=== PATIENT | male | born 1980 | race Caucasian/White ===

== ENCOUNTER 2024-12-04 23:50 | Observation (INO) | payer OTHER, SELFPAY ==
[2024-12-04] VITALS (8 sets, daily range): BP systolic 113–125; BP diastolic 65–84
[2024-12-04 13:02] LABS: % Basophils 0.7 % (0-2); % Eosinophils 1.6 % (0-6); % Immature Granulocytes 0.3 % (0-0.5); % Lymphocytes 17.6 % (20.5-51.1); % Monocytes 5.7 % (1.7-9.3); % Neutrophils 74.1 % (42.2-75.2); Absolute Basophils 0.1 10^3/uL (0-0.2); Absolute Eosinophils 0.2 10^3/uL (0-0.7); Absolute Lymphocytes 1.8 10^3/uL (1.2-3.4); Absolute Monocytes 0.6 10^3/uL (0.1-0.6); Absolute Neutrophils 7.5 10^3/uL (1.4-6.5); Hematocrit 48.9 % (39.0-52.0); Hemoglobin 16.6 g/dL (13.0-18.0); Mean Corp Hgb Conc. 33.9 g/dL (33.0-37.0); Mean Corpuscular Hgb 27.8 pg (27.0-31.0); Mean Corpuscular Volume 81.9 fL (80.0-94.0); Mean Platelet Volume 9.8 fL (7.4-10.4); Nucleated Red Blood Cells % 0 % (-); Platelet Count 332 10^3/uL (130-400); Red Blood Cell Count 5.97 10^6/uL (4.70-6.10); Red Cell Dist. Width 14.2 % (11.5-14.5); White Blood Cell Count 10.1 10^3/uL (4.8-10.8)
[2024-12-04 13:26] LABS: AST (SGOT) 25 U/L (17-59); Albumin 4.8 g/dl (3.5-5.0); Alkaline Phosphatase 112 U/L (38-126); Blood Urea Nitrogen 13 mg/dl (9-20); Calcium 9.8 mg/dl (8.4-10.2); Carbon Dioxide 19 mmol/L (22-30); Chloride 97 mmol/L (98-107); Glucose 152 mg/dl (70-99); Potassium 3.2 mmol/L (3.5-5.1); Sodium 136 mmol/L (135-145); Total Bilirubin 0.9 mg/dl (0.2-1.3); Total Protein 7.9 g/dl (6.3-8.2); eGFR > 60.00
[2024-12-04 15:22] LABS: ALT (SGPT) 18 U/L (0-50)
--- NOTE | 2024-12-04 17:25 | ED.GENMED ---
History of Present Illness
<Purnima Guevara PA-C - Last Filed: 12/05/24 01:28>
General
Chief Complaint: Fainting/Passed Out
Source: patient
Exam Limitations: none
Time Seen by Provider: 12/04/24 17:00
Nursing documentation reviewed up to this point in time: agreed with
History of Present Illness
History of Present Illness:
Patient is a 44-year-old male with history hypertension, kidney stones presenting to the emergency department after syncopal event at home. Patient states that he had been feeling generally unwell over the past few days. This morning�patient had
some vague abdominal discomfort and multiple episodes of dysuria. Patient then states that he was sitting on the couch when he had a witnessed syncopal event. He did have some nausea, following syncopal event. Patient denies any head strike or
loss of conscious. His son was present for the syncopal event and called 911. Patient denies any preceding chest pain, shortness of breath, lightheadedness.
On arrival to the emergency department�patient states he feels fatigue and has some lower abdominal discomfort. He was able to pee on arrival and states he is still having some dysuria and had a small amount of hematuria. Patient does have a
history of kidney stones although states feels different.
Past History
<JENNIFER Herndon Last Filed: 12/05/24 01:28>
Past History
ED Past Medical History: COPD, Seizures, Psychiatric and Other
ED Past Surgical History: Cholecystectomy, Urological (Kidney stones with stents, lithotripsy) and Other (right hand syrgery)
Social History
Tobacco: Former smoker (Vaps)
Alcohol: None
Drug: None
Personal:
Living: with family (juan and his three children)
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
Family History
Family History: Early CAD
Review of Systems
<Purnima Guevara PA-C - Last Filed: 12/05/24 01:28>
Review of Systems
Allergies reviewed?: Yes
All Other Systems: ROS reviewed and negative except as documented in HPI and ROS
Phy Exam
<Purnima Guevara PA-C - Last Filed: 12/05/24 01:28>
Physical Exam
Physical Exam:
Vitals: Patient's vital signs are stable. Afebrile
General: Patient is well appearing, no acute distress. Nontoxic.
Skin: Warm and dry, no rashes or lesions
Head: Normocephalic, atraumatic
Eyes: Sclera nonicteric. EOMs intact. No nystagmus.
Throat: Protecting airway
Neck: Normal ROM, no cervical spine tenderness, no meningismus
Cardiac: Regular rate and rhythm, no murmurs.
Pulm: Normal respiratory effort, no wheezes, rales, rhonchi heard on exam.
Abdomen: Abdomen soft. Mild lower abdominal tenderness without rebound tenderness or guarding. No CVA tenderness
Extremities: No evidence of cyanosis or edema. Palpable DP pulse
Neuro: AAOx3. Grossly intact.
Psychiatric: Normal affect.
Course
<Purnima Guevara PA-C - Last Filed: 12/05/24 01:28>
Orders/Labs/Results
Orders:
Orders
12/04/24 12:48
EKG [Electrocardiogram (*1)] Urgent
Reason for Study: Syncope
EKG- Treatment ONCE
12/04/24 12:55
Complete Blood Count/With Diff Urgent
Comprehensive Metabolic Panel Urgent
12/04/24 17:24
CT Head W/o Iv Contrast Urgent
Comment:
Reason For Exam: witnessed seizure
0.9% Sodium Chloride 1000 ml [Nss] 1,000 ml IV BOLUS
12/04/24 17:45
COVID-19 Antigen Urgent
Source: Nasal Swab
Influenza A+B Rapid Molecular Urgent
BRETT Source: Nasal Swab
Specimen Description:
12/04/24 17:49
Urinalysis Reflex To Culture Urgent
Date Specimen was Collected: 12/04/24
Time Specimen was Collected: 17:47
Urine Microscopic Reflex Cult Urgent
Urine Culture Urgent
BRETT Source: U
Specimen Description:
Date Specimen was Collected: 12/04/24
Time Specimen was Collected: 17:47
12/04/24 18:39
Abdomen/Pelvis wo Contrast CT [CT Abd/pelvis Wo Iv Cont] Urgent
Comment:
Reason For Exam: right flank pain, dysuria, hematuria
12/04/24 19:37
Troponin I Urgent
12/04/24 22:32
Iohexol [Omnipaque] See Protocol PO NOW STA
12/05/24 01:00
CT Abd/pel W Iv And Oral Contr Urgent
Comment: non con CT c/w appendicitis
Reason For Exam: Lower abd pain;
Abnormal Lab Results
12/04/24 12/04/24
12:55 17:49
Absolute Neuts (auto) 7.5 H 10^3/uL
(1.4-6.5)
Lymphocytes % 17.6 L %
(20.5-51.1)
Potassium 3.2 L mmol/L
(3.5-5.1)
Chloride 97 L mmol/L
(98-107)
Carbon Dioxide 19 L mmol/L
(22-30)
Glucose 152 H mg/dl
(70-99)
Ur Occult Blood Reflex 1+ A
(Negative)
Urine RBC 11-15 A /HPF
(0-2)
Urine Bacteria (Reflex) Moderate A
(Negative)
12/04/24 12:55
12/04/24 12:55
Vital Signs
Initial and Last Documented VS:
Initial Vital Signs
Temp Pulse Resp BP Pulse Ox
98.4 F 85 16 113/71 98
12/04/24 12:46 12/04/24 12:46 12/04/24 12:46 12/04/24 12:46 12/04/24 12:46
Last Documented Vital Signs
Temp Pulse Resp BP Pulse Ox
98.8 F 90 18 120/75 96
12/04/24 17:21 12/04/24 17:21 12/04/24 17:21 12/04/24 17:21 12/04/24 19:29
<Derrek Santana, DO - Last Filed: 12/04/24 21:13>
Orders/Labs/Results
Orders:
Orders
12/04/24 12:48
EKG [Electrocardiogram (*1)] Urgent
Reason for Study: Syncope
EKG- Treatment ONCE
12/04/24 12:55
Complete Blood Count/With Diff Urgent
Comprehensive Metabolic Panel Urgent
12/04/24 17:24
CT Head W/o Iv Contrast Urgent
Comment:
Reason For Exam: witnessed seizure
0.9% Sodium Chloride 1000 ml [Nss] 1,000 ml IV BOLUS
12/04/24 17:45
COVID-19 Antigen Urgent
Source: Nasal Swab
Influenza A+B Rapid Molecular Urgent
BRETT Source: Nasal Swab
Specimen Description:
12/04/24 17:49
Urinalysis Reflex To Culture Urgent
Date Specimen was Collected: 12/04/24
Time Specimen was Collected: 17:47
Urine Microscopic Reflex Cult Urgent
Urine Culture Urgent
BRETT Source: U
Specimen Description:
Date Specimen was Collected: 12/04/24
Time Specimen was Collected: 17:47
12/04/24 18:39
Abdomen/Pelvis wo Contrast CT [CT Abd/pelvis Wo Iv Cont] Urgent
Comment:
Reason For Exam: right flank pain, dysuria, hematuria
12/04/24 19:37
Troponin I Urgent
12/04/24 22:32
Iohexol [Omnipaque] See Protocol PO NOW STA
12/05/24 01:00
CT Abd/pel W Iv And Oral Contr Urgent
Comment: non con CT c/w appendicitis
Reason For Exam: Lower abd pain;
Abnormal Lab Results
12/04/24 12/04/24
12:55 17:49
Absolute Neuts (auto) 7.5 H 10^3/uL
(1.4-6.5)
Lymphocytes % 17.6 L %
(20.5-51.1)
Potassium 3.2 L mmol/L
(3.5-5.1)
Chloride 97 L mmol/L
(98-107)
Carbon Dioxide 19 L mmol/L
(22-30)
Glucose 152 H mg/dl
(70-99)
Ur Occult Blood Reflex 1+ A
(Negative)
Urine RBC 11-15 A /HPF
(0-2)
Urine Bacteria (Reflex) Moderate A
(Negative)
12/04/24 12:55
12/04/24 12:55
Vital Signs
Initial and Last Documented VS:
Initial Vital Signs
Temp Pulse Resp BP Pulse Ox
98.4 F 85 16 113/71 98
12/04/24 12:46 12/04/24 12:46 12/04/24 12:46 12/04/24 12:46 12/04/24 12:46
Last Documented Vital Signs
Temp Pulse Resp BP Pulse Ox
98.8 F 90 18 120/75 96
12/04/24 17:21 12/04/24 17:21 12/04/24 17:21 12/04/24 17:21 12/04/24 19:29
<Purnima Guevara PA-C - Last Filed: 12/05/24 01:28>
MDM/Problems Addressed
Differential Diagnosis Includes:
Not limited to: Cystitis, pyelonephritis, ureterolithiasis, viral illness, cardiac arrhythmia, electrolyte imbalance, acute coronary syndrome
MDM/Problems Addressed:
44-year-old male presenting following syncopal episode with dysuria and mild lower abdominal discomfort. Some associated nausea, no vomiting. No associated fevers. No preceding chest pain, shortness of breath. Patient has stable vital signs on
arrival. Physical exam as above. Syncopal event seems most consistent with likely vagal response. Low suspicion for central process vs cardiac cause. Will check labs and UA. Will check noncontrast CT abdomen to r/o kidney stone given dysuria and
associated lower abdominal pain + nausea. Will give fluids.
Update: Labs reviewed. Mild hypokalemia. Otherwise no clinically significant abnormalities. Urine somewhat equivocal for infection - RBCs and bacteria although no WBCs and nitrite negative. Head CT and CT abdomen without acute findings. Troponin
undetectable. EKG without acute ischemic changes.Low suspicion for acute cardiac process. Patient received a liter of IVF in ED. I do think it is possible that patient may have had a vagal response secondary to pain and may have passed kidney stone.
Given patients significant dysuria and bacturia will cover with abx pending culture. Otherwise - feel patient is stable for discharge with close return precautions.
Chronic conditions affecting care:
Hypertension, kidney stones, diabetes
Acute Exacerbation and/or Progression of Chronic Illness:
N/A
<Purnima Guevara PA-C - Last Filed: 12/05/24 01:28>
*Radiology
Radiology exam reviewed: radiology read reviewed
*Pulse Oximetry
Patient hypoxic: no
*EKG
Interpreted by ED Provider?: Yes
EKG Intrepretation Date: 12/04/24
Interpretation: normal
Comparison EKG: changes noted
Heart Rate: 73
Rate: normal
Rhythm: sinus arrhythmia
Booker: normal axis
Interval: normal interval
QRS Pattern: normal QRS
Ischemia: no ischemia
*Automotive Upholsterer Interpretation
Rate: normal
Interpretation: normal
Heart Rate: 88
Rhythm: sinus
*Critical Care Note
Total Time (30-74mins, 75-104mins- exclusive of procedures): Not Applicable
<Purnima Guevara PA-C - Last Filed: 12/05/24 01:28>
Patient Management
Discussion with other providers: Television Specialist (General surgery - Dr. Metzger)
Escalation/DeEscalation of care consider admission/obs:
Admit for observation overnight/ repeat CT scan - plan for OR in morning if repeat CT shows appendicitis
<Purnima Guevara PA-C - Last Filed: 12/05/24 01:28>
Update Note
Update Note:
Update 9:45PM: Pending discharge I was contacted by radiologist, Dr. Claudio who noted discrepancy of patients CT abdomen/ pelvis read by [facility]. Findings concerning for acute appendicitis. Patient did have some tenderness in RLQ on repeat abdominal
exam, although minimal. This was discussed with general surgery meals on wheels driver, Dr. Metzger. Somewhat atypical presentation for appendicitis. Plan to admit to surgery overnight for further observation. Will check repeat CT with IV/PO contrast for better eval
of appendix. OR in morning if findings consistent with appendicitis. Will hold abx for now. Patient comfortable with plan. Patient accepted to surgical service in stable condition.
ED Attending Note
<Purnima Guevara PA-C - Last Filed: 12/05/24 01:28>
-
Portions of this chart may have been created with voice recognition software.� Occasional wrong word or��sound alike� substitutions may have occurred due to the inherent limitations of voice recognition software.
<Derrek Santana DO - Last Filed: 12/04/24 21:13>
ED Attending Note
Patient seen and examined by attending physician: Yes
I performed the substantive portion of visit, reviewed & personally made and approve the management plan that is documented in note by myself or ARIEL.: Yes
ED Attending Note:
Seen with PA examined independently 44-year-old male history of stones and UTI, hematuria syncopal event, looks well here labs noted urine noted perhaps he passed a stone and vagal
Discharge Plan
Departure
Patient Disposition: Admit
Date of Disposition: 12/04/24
Time of Disposition: 22:33
Admit to doctor: Dr. Metzger
Presentation/result/management discussed w/ accepting MD/DO: Surgery
Discharge Problem:
Abdominal pain, Syncope
Interventions
Interventions:
*Risk Screen - Suicide Last Done: 12/04/24 12:46
*General Assessment Last Done: 12/04/24 12:46
*Neglect/Abuse Screening Last Done: 12/04/24 12:46
ED- Fall Risk Assessment Last Done: 12/04/24 19:29
*ED COVID-19 Vaccine History Last Done: 12/04/24 12:46
ED- Cardiac Assessment Last Done: 12/04/24 17:34
ED- Neurological Assessment Last Done: 12/04/24 19:29
[2024-12-04 17:55] LABS: Urine Albumin Negative (Neg - Trace); Urine Bilirubin Negative (Negative); Urine Character Clear (Clear); Urine Color Yellow; Urine Glucose Negative (Negative); Urine Ketone Negative (Negative); Urine Leukocyte Negative (Negative); Urine Nitrite Negative (Negative); Urine Occult Blood 1+ (Negative); Urine Specific Gravity 1.015 (<1.030); Urine Urobilinogen Negative (Neg - 1+)
[2024-12-04] MEDS: NSS 1000 IV (18:02)
[2024-12-04 18:03] LABS: Urine Mucus Moderate; Urine White Cell 0-2 /HPF (0-5)
[2024-12-04 18:04] LABS: Urine Bacteria Moderate (Negative)
[2024-12-04 18:08] LABS: COVID-19 Antigen Negative (Negative)
[2024-12-04 20:07] LABS: Troponin I < 0.012 ng/ml
[2024-12-04] MEDS: OMNIPAQUE 50 ML PO (23:02)
[2024-12-05] VITALS (15 sets, daily range): BP systolic 105–142; BP diastolic 60–84; BMI 30.7
--- NOTE | 2024-12-05 00:39 | HPS.HSE ---
Family Physician
<DARIEN Fu - Last Filed: 12/05/24 02:17>
-
Family Physician: Minh Vitale MD
Chief Complaint
<DARIEN Fu - Last Filed: 12/05/24 02:17>
-
'passed out at home' 'feels like i have a UTI'
History of Present Illness
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 Patient states that he had been feeling generally unwell, tired and weak over the
past few days. This morning�patient had some vague abdominal discomfort and multiple episodes of dysuria. He felt like he had a UTI. Describes urine being malodorous, feeling like 'i was peeing razor blades.' Patient then states that he was
sitting on the couch when he had a witnessed syncopal event. He has no recollection of this even, only that when he came to- EMS was there. He did have some nausea, following syncopal event. Patient denies any head strike or loss of conscious.
His son was present for the syncopal event and called 911. Patient denies any preceding chest pain, shortness of breath, lightheadedness.
Patient does have a history of kidney stones although states feels different.
Admit to feeling chills yesterday. BM normal. +anorexia.
Last dose of Eliquis pm 12/03/23
ED treatment:
CT abd no contrast: [facility]ology read initial Ct scan as normal appendix, but according to ED PA, she received phone call from in house radiology who expresses concern for appendicitis.
DR Metzger recommended CT with iv and oral contrast--pt drinking now
CT head: IMPRESSION:
No evidence of acute intracranial abnormality.
Paranasal sinus disease as described. Air-fluid levels within the sphenoid sinuses suggest the possibility of acute sinusitis, and please correlate clinically.
WBC normal
UA doesn't appear infected. Some mod bacteria, normal WBC and +1 blood
K+ low 3.2
Medical History
<DARIEN Fu - Last Filed: 12/05/24 02:17>
Past Medical History
Past Medical History: Reports COPD (mild), HTN, Hypercholesterolemia, NIDDM, Seizures (last seizure 2011. takes no meds), Psychiatric (anxiety) and Other (complex regional pain syndrome RLE after crush injury 2015)
Additional Past Medical History:
COPD-'mild'
Seizure disorder
DVT/PE on Eliquis
back pain
Complex regional pain syndrome
Lymphedema-resolved
Obesity
Depression
Anxiety
kidney stones
Crohn's disease-no meds
Gallstones-lap silvia 2015
History of ulcers
Former smoker
Fatty liver
Past Surgical History: Reports Cholecystectomy, Orthopedic (right hand) and Urological (lithotripsy. stent)
Social History
Tobacco: Former Smoker
Alcohol: None
Drug: None
Personal: Partner (fiance)
Living: With Family
Family History
Family History: Other (The patient's brother with a history of valvular heart issues. The patient's mother with a history of TIA x2 and hypertension. The patient's father with history of CAD and recent valvular heart repa)
Allergies / Home Medications
Allergies reflects when Allergies were last updated in [facility].
Home Medications with original date entered in [facility]
Allergy/Medication List:
Allergies
Allergy/AdvReac Type Severity Reaction Status Date / Time
No Known Allergies Allergy Verified 12/04/24 12:46
Home Medications
Buprenorphine Hcl/Naloxone Hcl [Buprenorphine-Nalox 8-2 Mg Tab] 1 tab sublingual BID Substance use disorder 03/20/21
albuterol sulfate 90 mcg/actuation aerosol inhaler 2 puff inhalation R [id number] PRN sob 03/20/21
alprazolam 1 mg tablet,extended release 24 hr 1 mg PO HS Mental Health/Anxiety 03/20/21
alprazolam 2 mg tablet,extended release 24 hr (Xanax XR) 2 mg PO DAILY Mental Health/Anxiety 03/20/21
apixaban 2.5 mg tablet (Eliquis) 2.5 mg PO BID Blood clot prevention/tx 03/20/21
atorvastatin 20 mg tablet 20 mg PO QPM High cholesterol 03/20/21
losartan 25 mg tablet 25 mg PO DAILY Blood pressure 03/20/21
metformin 500 mg tablet,extended release 24 hr 500 mg PO QPM Diabetes 03/20/21
hydrochlorothiazide 25 mg tablet 12.5 mg PO DAILY Blood pressure 04/03/21
semaglutide 1 mg/dose (2 mg/1.5 mL) subcutaneous pen injector 1 mg SC QWEEK 12/05/24
testosterone enanthate 50 mg/0.5 mL subcutaneous auto-injector (Xyosted) 50 mg SC QWEEK 12/05/24
Review of Systems
<DARIEN Fu - Last Filed: 12/05/24 02:17>
-
History Source: Patient
A 12 point ROS was completed and negative except as noted: Yes
Constitutional: Reports Fever (felt chills yesterday), Fatigue and Other (generalized unwell feeling last 2 days)
EENT: Reports Other (nasal congestion)
Respiratory: Reports No Symptoms
Cardiac: Reports Syncope (syncopal episode today)
Abdomen/GI: Reports See HPI, Abdominal Pain (lower diffuse abd discomfort) and Nausea (after syncope)
: Reports See HPI, Dysuria, Bleeding (noticed small amt blood) and Dark Urine
Musculoskeletal: Reports Muscle Pain (chronic pain RLE)
Skin: Reports No Symptoms
Neurological: Reports Weakness
Endocrine: Reports No Symptoms
Hematologic/Lymphatic: Reports No Symptoms
Psych: Reports No Symptoms
Physical Exam
<DARIEN Fu - Last Filed: 12/05/24 02:17>
Vital Signs
Vital Signs
Temp Pulse Resp BP Pulse Ox
98.8 F 90 18 120/75 96
12/04/24 17:21 12/04/24 17:21 12/04/24 17:21 12/04/24 17:21 12/04/24 19:29
Physical Exam
General: Well Developed, Well Nourished, No Apparent Distress, Comfortable and Obese
HEENT: NormoCephalic, Anicteric, Moist mucous membranes and Other (wears dentures, not in at the moment); No Good Dentition
Respiratory: Clear and Non Labored Respirations
Cardiac: S1/S2 and Regular Rhythm
Breast: Deferred by me
GI: Soft and Tender (suprapubic tenderness, + tender RLQ with mod-deep palpation)
Rectal: Deferred by Provider
Genito-urinary: Other (urine could not be visualized at this time)
Musculoskeletal: No Clubbing and No Cyanosis
Skin: Warm, Dry and Other (tattoos)
Neuro: Awake, Alert, Oriented, No Motor Deficits and Nonfocal/grossly intact
Hematologic/Lymphatic: No Lymphadenopathy
Psych: Calm
Laboratory Results
<DARIEN Fu - Last Filed: 12/05/24 02:17>
-
12/04/24 12:55
12/04/24 12:55
Laboratory Results
Total Bilirubin 0.9 mg/dl (0.2-1.3) 12/04/24 12:55
AST 25 U/L (17-59) 12/04/24 12:55
ALT 18 U/L (0-50) 12/04/24 12:55
Alkaline Phosphatase 112 U/L (38-126) 12/04/24 12:55
Troponin I < 0.012 ng/ml 12/04/24 19:37
Data Reviewed
<DARIEN Fu - Last Filed: 12/05/24 02:17>
-
CT Scan: Discussed with Physician
Medical Tests (Nuc Med, Echo, EKG etc): Report Reviewed by me
Lab Data: Labs Reviewed by me
<Soy Metzger MD - Last Filed: 12/05/24 09:50>
-
CT Scan: Image Personally Visualized and interpreted, Report Reviewed by me and Discussed with Patient
Lab Data: Discussed with Patient
Impression/Plan
<DARIEN Fu - Last Filed: 12/05/24 02:17>
-
IMPRESSION:
acute appendicitis
PLAN:
Admit to service of Dr Metzger
Tele obs (due to syncope today)
#acute appendicitis
-First CT abd w/o contrast: The appendix is visualized off the superior medial aspect of the cecum. The appendix is enlarged, measuring up to 11 mm in diameter. There is mild stranding of the fat adjacent to the appendix, probably best seen on
coronal images 38 and 39 of series 202. These findings are suggestive of appendicitis and please correlate clinically. Of note, the appendix appears normal on previous examination. Of note, this finding is a discrepancy with the preliminary report
from [facility]. This finding was discussed with Purnima Guevara in the emergency department on December 04, 2014 at 2145 hours.
-Dr Metzger recommended CT abd with oral and IV contrast- pending
-NPO x meds for possible OR in am
-start zosyn q6h (will also cover poss UTI, and acute sinusitis seen on CT head today)
-CBC BMP in am
-IVF NSS
-at this time does not wish narcotics for pain. will stick with his buprenorphine
#DVT/PE on Eliquis
-last dose 12/03/24 pm
-Hold doses tonight
#Complex regional pain syndrome
-cont buprenorphine ( he takes 2mg in am and usually only 1/2 tab in pm)
-Advised to have family bring in own buprenorphine/naloxone if staying longer that 1 day as it is non formulary here.
#anxiety
-cont xanax
#HTN
-hold HCTZ
-cont losartan (bp currently controlled in 120's)
#NIDDM
-hold metformin tomorrow
-low SS and accuchecks
-check Ha1c
-Hold ozempic
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
Seizure disorder- last one 2011. No meds
COPD mild- albuterol PRN at home . takes rarely
Full code
DVT proph: SCDs while eliquis on hold
[2024-12-05] MEDS: SUBUTEX 1 MG SL ×2 (01:40→21:57)
[2024-12-05] MEDS: XANAX 1 MG PO ×2 (01:40→21:57)
[2024-12-05] MEDS: KCL 40 MEQ PO (03:02)
[2024-12-05] MEDS: ZOSYN 50 IV ×4 (03:02→20:24)
[2024-12-05] MEDS: NSS 1000 IV ×3 (04:24→23:40)
[2024-12-05 05:56] LABS: % Basophils 0.4 % (0-2); % Eosinophils 0.6 % (0-6); % Immature Granulocytes 0.4 % (0-0.5); % Monocytes 8.4 % (1.7-9.3); % Neutrophils 77.2 % (42.2-75.2); Absolute Basophils 0.1 10^3/uL (0-0.2); Absolute Eosinophils 0.1 10^3/uL (0-0.7); Absolute Immature Granulocytes 0.1 10^3/uL (0-0.05); Absolute Monocytes 1.3 10^3/uL (0.1-0.6); Hematocrit 45.7 % (39.0-52.0); Hemoglobin 15.2 g/dL (13.0-18.0); Mean Corp Hgb Conc. 33.3 g/dL (33.0-37.0); Mean Corpuscular Hgb 27.4 pg (27.0-31.0); Mean Corpuscular Volume 82.5 fL (80.0-94.0); Mean Platelet Volume 9.8 fL (7.4-10.4); Nucleated Red Blood Cells % 0 % (-); Platelet Count 322 10^3/uL (130-400); Red Blood Cell Count 5.54 10^6/uL (4.70-6.10); Red Cell Dist. Width 14.4 % (11.5-14.5); White Blood Cell Count 15.6 10^3/uL (4.8-10.8)
[2024-12-05 06:07] LABS: INR 1.16; PT 15.1 Sec (11.4-14.6)
[2024-12-05 06:23] LABS: ALT (SGPT) 14 U/L (0-50); AST (SGOT) 27 U/L (17-59); Albumin 4.3 g/dl (3.5-5.0); Alkaline Phosphatase 97 U/L (38-126); Blood Urea Nitrogen 12 mg/dl (9-20); Calcium 8.7 mg/dl (8.4-10.2); Carbon Dioxide 31 mmol/L (22-30); Chloride 93 mmol/L (98-107); Estimated Creatinine Clearance 94 ml/min; Glucose 90 mg/dl (70-99); Potassium 3.1 mmol/L (3.5-5.1); Sodium 136 mmol/L (135-145); Total Bilirubin 1.5 mg/dl (0.2-1.3); eGFR > 60.00
[2024-12-05] MEDS: COZAAR 25 MG PO (07:56)
[2024-12-05] MEDS: SUBUTEX 2 MG SL (07:57)
[2024-12-05 07:59] LABS: Glucose - Point of Care 82 mg/dl (70-99)
[2024-12-05] MEDS: NOVOLOG FLEXPEN-LOW RESISTANCE SC ×2 (08:00→12:28)
[2024-12-05] MEDS: KCL 270 MEQ IV (08:39)
[2024-12-05] MEDS: KCENTRA 180 UNIT IV (09:56)
--- NOTE | 2024-12-05 10:06 | CON.HOSP ---
Consultation
-
Date/Time Consultation Requested: 12/05/2024 07:39 AM
Date/Time Consultation Performed: 12/05/2024 10:06 AM
Requesting Provider: Dr. Paul Metzger
Performing Provider: Dr. Erma Moreland
Reason for Consultation: medical management
Family Physician
-
Family Physician: Minh Vitale MD
Chief Complaint
-
lower abdominal pain
History of Present Illness
Patient is a 44-year-old male with a past medical history significant for seizure disorder, chronic back pain, essential hypertension, chronic lymphedema, history of deep venous thrombosis with pulmonary embolism who started feeling unwell Friday
morning prior to admission. He stated that he was feeling tired and when he urinated it felt like 'razor blades'. He stated it was dark and smelled and he thought he had a urinary tract infection. He states that he was having chills and overall
not feeling well. He was nauseous but did not have any vomiting, constipation, or diarrhea. He stated he was sitting on the couch with his son watching TV and eating Spaghetti-Os when he does not remember what happened. Apparently, family called
911 and he was brought to the emergency room. Workup here finds him to have acute appendicitis and the patient is going to the operating room at 11 AM today.
We are asked to see the patient for medical management of his chronic medical issues.
Medical History
Past Medical History
Past Medical History: Reports Other
Additional Past Medical History:
Seizure disorder-last seizure over 12 years ago
Type 2 diabetes mellitus versus prediabetes as patient indicates
Chronic lymphedema
Essential hypertension
Deep venous thrombosis with pulmonary embolism in past
Chronic low back pain
History of renal stones
Past Surgical History: Reports Other
Additional Past Surgical History:
Cholecystectomy
Spinal stimulator implant and explantation (explantation approximately 1 year ago)
History of renal stones with stents and lithotripsy
Social History
Tobacco: Non-smoker
Alcohol: None
Drug: None
Living: With Family
Family History
Family History: Other (Younger brother had congenital heart issues and had valve replacement, father also had valve replacement)
Allergies / Home Medications
Allergies reflects when Allergies were last updated in [facility]
Home Medications with original date entered in [facility]
Allergy/Medication List:
Allergies
Allergy/AdvReac Type Severity Reaction Status Date / Time
No Known Allergies Allergy Verified 12/04/24 12:46
Home Medications
Buprenorphine Hcl/Naloxone Hcl [Buprenorphine-Nalox 8-2 Mg Tab] 1 tab sublingual BID Substance use disorder 03/20/21
albuterol sulfate 90 mcg/actuation aerosol inhaler 2 puff inhalation R [id number] PRN sob 03/20/21
alprazolam 1 mg tablet,extended release 24 hr 1 mg PO HS Mental Health/Anxiety 03/20/21
alprazolam 2 mg tablet,extended release 24 hr (Xanax XR) 2 mg PO DAILY Mental Health/Anxiety 03/20/21
apixaban 2.5 mg tablet (Eliquis) 2.5 mg PO BID Blood clot prevention/tx 03/20/21
atorvastatin 20 mg tablet 20 mg PO QPM High cholesterol 03/20/21
losartan 25 mg tablet 25 mg PO DAILY Blood pressure 03/20/21
metformin 500 mg tablet,extended release 24 hr 500 mg PO QPM Diabetes 03/20/21
hydrochlorothiazide 25 mg tablet 12.5 mg PO DAILY Blood pressure 04/03/21
semaglutide 1 mg/dose (2 mg/1.5 mL) subcutaneous pen injector 1 mg SC QWEEK 12/05/24
testosterone enanthate 50 mg/0.5 mL subcutaneous auto-injector (Xyosted) 50 mg SC QWEEK 12/05/24
Review of Systems
-
History Source: Patient
Constitutional: Reports Chills; Denies Fever
EENT: Reports No Symptoms
Respiratory: Reports No Symptoms
Cardiac: Reports No Symptoms
Abdomen/GI: Reports Abdominal Pain and Nausea; Denies Vomiting or Diarrhea
: Reports Dysuria
Musculoskeletal: Reports No Symptoms
Skin: Reports No Symptoms
Neurological: Reports No Symptoms
Endocrine: Reports No Symptoms
Hematologic/Lymphatic: Reports No Symptoms
Psych: Reports No Symptoms
Physical Exam
Vital Signs
Vital Signs
Temp Pulse Resp BP Pulse Ox
98.0 F 82 18 110/68 98
12/05/24 07:50 12/05/24 07:56 12/05/24 07:50 12/05/24 07:56 12/05/24 07:50
Physical Exam
General: Well Developed, Well Nourished and No Apparent Distress
HEENT: Normocephalic and Atraumatic
Respiratory: Clear; Negative Wheezes, Rales or Rhonchi
Cardiac: S1/S2 and Regular Rhythm; Negative Murmur
GI: Soft, Non Distended, Normal Bowel Sounds and Tender (Right lower quadrant)
Musculoskeletal: No Clubbing, No Cyanosis and No Edema
Skin: Warm
Neuro: Awake and Alert
Psych: Calm
Laboratory Results
-
Laboratory Results
12/05/24 04:41
12/05/24 04:41
PT 15.1 Sec (11.4-14.6) H 12/05/24 04:41
INR 1.16 12/05/24 04:41
Total Bilirubin 1.5 mg/dl (0.2-1.3) H 12/05/24 04:41
AST 27 U/L (17-59) 12/05/24 04:41
ALT 14 U/L (0-50) 12/05/24 04:41
Alkaline Phosphatase 97 U/L (38-126) 12/05/24 04:41
Troponin I < 0.012 ng/ml 12/04/24 19:37
Impression / Plan
-
Patient is a 44-year-old male
Acute appendicitis--no objections to the operating room as scheduled later today--rest of care in this regard per primary team
Seizure disorder--no seizures for the last 12 years at least--not on any antiseizure medications at this time
History of deep venous thrombosis/pulmonary embolism--does take Eliquis--last dose was morning of 12/04/24--continue to hold in anticipation for surgery today--can restart when okay with surgery
Type 2 diabetes mellitus versus prediabetes (as patient seems to think)--hold Ozempic--hold metformin--placed on sliding scale insulin with coverage, will check hemoglobin O8g--AZ scan done with IV contrast, therefore need to hold metformin for 48
hours prior to restarting
Chronic pain--patient no longer has spinal stimulator--takes buprenorphine (Subutex)--can restart later tonight when anesthesia wears off
Chronic lymphedema--none appreciated currently--will hold hydrochlorothiazide in the perioperative setting--can start on discharge
Essential hypertension--can continue losartan with holding parameters
Anxiety/depression--will hold Xanax for now as patient going to the operating room
Hyperlipidemia--continue atorvastatin once able to take p.o.'s
DVT prophylaxis--sequential teds compression for now
CODE STATUS--full code
Thank you for allowing us to consult on your patient. Will follow with you.
--- NOTE | 2024-12-05 10:42 | PTCARENOTE ---
Patient sent to PACU for OR @10:42; 2nd set of CHG wipes completed; Spoke with GAS CUTTING MACHINE OPERATOR Mariah at 10:20 to let know patient had [employer] infusing until 10:30 and also ABO2 being drawn by phlebotomy before sending to PACU for OR; ABO2 drawn and patient
then brought to PACU for OR in bed @10:42 with Krider & IVF infusing (okayed by Dr. Metzger to sent to OR with such infusing).
[2024-12-05 10:43] LABS: Glycohemoglobin (HgbA1c) 5.7 % (4.0-5.6)
--- NOTE | 2024-12-05 12:59 | W.IMMPOSTOP ---
Surgical Immed Post Op Note
-
Primary Surgeon: Paul Metzger MD
Signals Intelligence Analyst: STEPHANIE Yu
Pre-op Diagnosis: Acute appendicitis
Post-op Diagnosis: Same
Procedure Performed: Laparoscopic appendectomy
Anesthesia Type: GET
Specimen / Cultures: Appendix
Estimated Blood Loss: 7cc
Complications: None
Operative Findings: Acutely inflamed, nonperforated appendix
[2024-12-05] MEDS: DILAUDID 0.5 MG IV (13:03)
[2024-12-05] MEDS: TORADOL 15 MG IV (13:11)
[2024-12-05 13:12] LABS: Glucose - Point of Care 117 mg/dl (70-99)
--- NOTE | 2024-12-05 13:40 | PTCARENOTE ---
Patient arrived from PACU @13:40 on telemetry and with IVF infusing, 3 lap/port sites with surgical glue C/D/I; VSS.
--- NOTE | 2024-12-05 15:20 | CM ---
CM reviewed chart. Pt from home now s/p Laparoscopic appendectomy on 12/05.
Pt not available to speak with at this time. Pt is noted to have no skilled needs noted.
Anticipate dc to home- pt responsible for arranging transport at dc.
CM/SW will continue to follow to ensure a safe and timely discharge.
Consult CM/SW should dc needs change from the above.
[2024-12-05 16:36] LABS: Glucose - Point of Care 157 mg/dl (70-99)
[2024-12-05] MEDS: NOVOLOG FLEXPEN-LOW RESISTANCE 1 UNITS SC (17:11)
[2024-12-05] MEDS: LIPITOR 20 MG PO (17:12)
[2024-12-05 21:04] LABS: Glucose - Point of Care 145 mg/dl (70-99)
[2024-12-06] MEDS: ZOSYN 50 IV ×3 (02:28→14:31)
[2024-12-06 02:50] VITALS: BP 105/52
[2024-12-06 06:28] LABS: Hematocrit 38.6 % (39.0-52.0); Mean Corp Hgb Conc. 33.7 g/dL (33.0-37.0); Mean Corpuscular Hgb 28.3 pg (27.0-31.0); Mean Corpuscular Volume 83.9 fL (80.0-94.0); Mean Platelet Volume 9.7 fL (7.4-10.4); Platelet Count 273 10^3/uL (130-400); Red Cell Dist. Width 14.7 % (11.5-14.5); White Blood Cell Count 14.6 10^3/uL (4.8-10.8)
[2024-12-06 06:47] LABS: Blood Urea Nitrogen 10 mg/dl (9-20); Carbon Dioxide 27 mmol/L (22-30); Chloride 99 mmol/L (98-107); Estimated Creatinine Clearance 112 ml/min; Glucose 116 mg/dl (70-99); Magnesium 2.2 mg/dl (1.6-2.3); Potassium 3.7 mmol/L (3.5-5.1); Sodium 137 mmol/L (135-145); eGFR > 60.00
[2024-12-06 07:21] VITALS: BP 103/57
[2024-12-06] MEDS: SUBUTEX 2 MG SL (07:43)
[2024-12-06] MEDS: NSS 1000 IV (07:56)
[2024-12-06 08:33] LABS: Glucose - Point of Care 150 mg/dl (70-99)
[2024-12-06] MEDS: NOVOLOG FLEXPEN-LOW RESISTANCE 1 UNITS SC (08:59)
--- NOTE | 2024-12-06 10:18 | W.PN.CRS1 ---
Today's Communication / Plan
-
likely d/c later today
start eliquis tonight
regular diet
Assessment/Plan
-
POD#1 Laparoscopic appendectomy
-Vitals normal. WBC 14.6 as expected post op.
-Advance diet to regular.
-D/C IVFs.
-OOB as tolerated.
-Voiding post lantigua removal.
-OR pathology pending.
-Okay to restart Eliquis tonight.
-Still complaining of urinary burning - await urine culture
-Appreciate hopsitalist
-Likely discharge later today
-Do not need IV abx from a surgical perspective, but will keep on for now given urinary symptoms and await hospitalist's opinion.
Subjective Data
Subjective Data
Date of Service: December 06, 2024
Patient states he feels well. He doesn't have much of an appetite. He has gas pain but no bowel movements yet. His pain is 'okay'.
Objective Data
-
Vital Signs
Temp Pulse Resp BP Pulse Ox
98.9 F 71 20 103/57 96
12/06/24 07:21 12/06/24 07:21 12/06/24 07:21 12/06/24 07:21 12/06/24 07:21
Intake & Output
12/05/24 12/06/24 12/07/24
06:59 06:59 06:59
Intake Total 425 / 425 4455 / 4455 50 / 50
Output Total 920 / 920 450 / 450
Balance 425 / 425 3535 / 3535 -400 / -400
Intake:
Oral fluids 1380 / 1380
IV fluids (Total) 375 / 375 2425 / 2425
nss 75 / 75
IV piggybacks 50 / 50 650 / 650 50 / 50
Output:
Urine, Voided 920 / 920 450 / 450
Other:
Number of approximated MODERATE 1 1
amounts of urine
Number of approximated LARGE 1
amounts of urine
Lab Results
12/06/24 05:11
12/06/24 05:11
Physical Exam
-
General: No Acute Distress and AOx3
Abdomen: Soft, Non Distended and Non Tender
Skin: Warm and Dry
Incision: Clear, Dry, Intact
[2024-12-06 11:00] VITALS: BP 110/61
[2024-12-06 12:26] LABS: Glucose - Point of Care 113 mg/dl (70-99)
[2024-12-06] MEDS: NOVOLOG FLEXPEN-LOW RESISTANCE SC ×2 (13:08→17:10)
--- NOTE | 2024-12-06 14:51 | W.PN.HOSP.TC ---
Addendum entered and electronically signed by Erma Moreland MD 12/06/24 17:51:
I saw and evaluated the patient independently. I reviewed the resident�s note and agree with findings and plan as documented by Dr. Correa.
GENERAL: well developed, well nourished, male in no apparent distress
HEENT: NC/AT
HEART: regular rate and rhythm, +S1, +S2--bradycardic on tele (HR 30s-60s)
LUNGS : clear to auscultation bilaterally
ABDOM: soft, nontender, nondistended, + bowel sounds
EXT: no cyanosis, clubbing, or edema
NEUROLOGIC: grossly intact
Acute appendicitis--POD 1--cleared for d/c by primary team
Seizure disorder--no seizures for the last 12 years at least--not on any antiseizure medications at this time
History of deep venous thrombosis/pulmonary embolism--does take Eliquis--last dose was morning of 12/04/24--continue to hold in anticipation for surgery today--can restart
Type 2 diabetes mellitus versus prediabetes (as patient seems to think)--restart Ozempic-- hemoglobin A1c 5.7--CT scan done with IV contrast, therefore need to hold metformin for 48 hours prior to restarting
Chronic pain--patient no longer has spinal stimulator--takes buprenorphine (Subutex)--can restart later tonight when anesthesia wears off
Chronic lymphedema--none appreciated currently--will hold hydrochlorothiazide in the perioperative setting--can restart on discharge
Essential hypertension--can continue losartan with holding parameters
bradycardia--sinus but unclear if symptomatic as pt has had syncope at home at times--f/u with cards as outpt--may need holter monitor
Anxiety/depression--will hold Xanax for now as patient going to the operating room
Hyperlipidemia--continue atorvastatin once able to take p.o.'s
DVT prophylaxis--sequential teds compression for now
CODE STATUS--full code
Original Note:
Today's Communication/Plan
-
Discharge today as per primary team
Assessment / Plan
Assessment / Plan
44-year-old male admitted for appendicitis, s/p laparoscopic appendectomy on 12/05/2024.
Impression
Acute appendicitis
Hematuria/bacteriuria
Seizure disorder
Bradycardia
History of DVT/PE
Type II DM
Chronic pain
Chronic lymphedema
Essential hypertension
Anxiety/depression
Hyperlipidemia
Plan
Acute appendicitis
POD #1
Patient did not have a bowel movement yet, but he is passing flatus
Advance diet as tolerated
IV fluids discontinued
Discontinue Zosyn
Resume Eliquis today
Hematuria/bacteriuria
Patient has some urinary symptoms
Urine culture�no growth
Pyridium as outpatient at discharge
Seizure disorder
Not on any seizure meds since 12 years
Bradycardia
Heart rate�30-50
Patient is asymptomatic
Follow-up with cardiology as outpatient
History of DVT/PE
Resume Eliquis today
Type II DM
Can resume Ozempic
Can restart metformin on 12/07/2024
HbA1c�5.7
Continue SSI
Chronic pain
Continue Subutex
Essential hypertension
Losartan 25 mg
Can resume hydrochlorothiazide
Anxiety/depression
Resume Xanax
Hyperlipidemia
Continue atorvastatin 20 mg
DVT prophylaxis
SCDs
Anticipated Discharge: Today
Subjective/Interval History
-
Date of Service: December 06, 2024
Patient feeling better. Patient has tolerated clear liquids yesterday.
Objective Data
-
Labs:
Laboratory Results
12/06/24
05:11
WBC 14.6 H
Hgb 13.0
Hct 38.6 L
Plt Count 273
Sodium 137
Potassium 3.7
Chloride 99
Carbon Dioxide 27
BUN 10
Creatinine 1.0
Glucose 116 H
Calcium 8.0 L
Vital Signs:
Vital Signs
Temp Pulse Resp BP Pulse Ox
97.9 F 77 16 110/61 95
12/06/24 11:00 12/06/24 11:00 12/06/24 11:00 12/06/24 11:00 12/06/24 11:00
I&O
12/05/24 12/06/24 12/07/24
06:59 06:59 06:59
Intake Total 425 / 425 4455 / 4455 100 / 100
Output Total 920 / 920 650 / 650
Balance 425 / 425 3535 / 3535 -550 / -550
Review of Systems
-
All other systems: Reviewed and negative (As per history)
Physical Exam
-
General: Well Developed, Well Nourished and No Apparent Distress
HEENT: Normocephalic and Atraumatic
Respiratory: Clear to Auscultation
Cardiac: Regular Rhythm and S1/S2
GI: Soft, Nondistended and Other (Laparoscopic port sites intact, no drainage)
Musculoskeletal: No Clubbing, No Cyanosis and No Edema
Skin: Warm and Dry
Neuro: Awake, Alert, Oriented and AO x 3
Psych: Calm
--- NOTE | 2024-12-06 15:26 | CM ---
Addendum entered by Alyse Early 12/06/24 15:29:
Patient was obs and physician changed to [facility] [place] today.
Original Note:
Patient seen at bedside with physicians. Patient states that he has transportation home with his father and that he lives alone in a 2 story home. Patient with no needs at this time. CM will continue to follow for discharge planning needs.
Plan; home with no needs.
[2024-12-06 16:14] VITALS: BP 112/75
[2024-12-06] MEDS: LIPITOR 20 MG PO (17:11)
== END 2024-12-06 18:40 | disposition home or self-care (01) ==
LOC: 2 SOUTH 23:50
PROVIDERS: Emergency Medicine; Nurse Practitioner Family; Physician Assistant; Registered Nurse; Student in an Organized Health Care Education/Training Program; ADMITTING PHYSICIAN Surgery; CONSULT PHYSICIAN Internal Medicine; EMERGENCY PHYSICIAN Emergency Medicine; FAMILY PHYSICIAN Internal Medicine
PROC: 30283B1 Transfusion of Nonautologous 4-Factor Prothrombin Complex Concentrate into Vein, Percutaneous Approach (ICD-10-PCS; 2024-12-05)
PROC: 0DTJ4ZZ Resection of Appendix, Percutaneous Endoscopic Approach (ICD-10-PCS; 2024-12-05)
DX: K35.80 Unspecified acute appendicitis (principal); Z79.01 Long term (current) use of anticoagulants; I10 Essential (primary) hypertension; Z87.442 Personal history of urinary calculi; J44.9 Chronic obstructive pulmonary disease, unspecified; G40.909 Epilepsy, unspecified, not intractable, without status epilepticus; E87.6 Hypokalemia; Z86.718 Personal history of other venous thrombosis and embolism; Z86.711 Personal history of pulmonary embolism; N20.0 Calculus of kidney; E78.00 Pure hypercholesterolemia, unspecified; E11.9 Type 2 diabetes mellitus without complications; Z79.84 Long term (current) use of oral hypoglycemic drugs; F41.9 Anxiety disorder, unspecified; F32.A Depression, unspecified; E66.9 Obesity, unspecified; Z87.891 Personal history of nicotine dependence; K76.0 Fatty (change of) liver, not elsewhere classified; G90.521 Complex regional pain syndrome I of right lower limb; I89.0 Lymphedema, not elsewhere classified; R00.1 Bradycardia, unspecified; R82.71 Bacteriuria; R31.9 Hematuria, unspecified; Z11.52 Encounter for screening for COVID-19; K38.2 Diverticulum of appendix
CPT/HCPCS: 44970; 88304; 70450; 74176; 74177; 80048; 80053; 81003; 81015; 82962; 83036; 83735; 84484; 85025; 85027; 85610; 86850; 86900; 86901; 87086; 87502; 87811; 93005; 96360; 96361; 99285; C1776; G0378; J7168; Q9967

== ENCOUNTER → 2025-01-14 10:57 | Outpatient (REF) | payer OTHER, SELFPAY | LOC: HWRCS 10:57 | PROVIDERS: ATTENDING PHYSICIAN Internal Medicine Cardiovascular Disease; FAMILY PHYSICIAN Family Medicine | DX: R00.1 Bradycardia, unspecified (principal) | CPT/HCPCS: 93306 ==